=== PATIENT | male | born 1995 | race Caucasian/White ===

== ENCOUNTER 2016-10-25 16:02 | Emergency (ER) | payer OTHER ==
[~2016-10-25] VITALS: Ht 180.3 cm; Wt 122.7 kg
[~2016-10-25 16:02] MED LIST: ARIP20TA8 PO; OMEP40CA5 PO
[2016-10-25 16:13] VITALS: BP 146/81
--- NOTE | 2016-10-25 16:49 | ED.ADGEN ---
Past History Past Medical History: Bipolar, Depression, GERD Past Surgical History: Other Alcohol Use: Occasionally Drug Use: None Adult General Chief Complaint Chief Complaint laceration HPI HPI Patient is a 20 year old male who presents with left long finger laceration. Patient was getting his ready for bowhunting when he cut his finger. He reports his tetanus was updated 6 months ago. No other injuries reported. The bows were clean. Review of Systems Review of Systems Constitutional: Denies fever or chills [] Eyes: Denies change in visual acuity, redness, or eye pain [] HENT: Denies nasal congestion or sore throat [] Respiratory: Denies cough or shortness of breath [] Cardiovascular: No additional information not addressed in HPI [] GI: Denies abdominal pain, nausea, vomiting, bloody stools or diarrhea [] : Denies dysuria or hematuria [] Musculoskeletal: Denies back pain or joint pain [] Integument: Denies rash or skin lesions [] Neurologic: Denies headache, focal weakness or sensory changes [] Allergies Allergies Allergies Coded Allergies Type Severity Reaction Last Updated Verified No Known Drug Allergies 06/07/16 No Physical Exam Physical Exam Constitutional: Well developed, well nourished, no acute distress, non-toxic appearance. [] HENT: Normocephalic, atraumatic Eyes: conjunctiva normal, no discharge. [] Neck: Normal range of motion Cardiovascular:Heart rate regular Lungs & Thorax: No respiratory distress Extremities: Left lateral aspect of the long finger has a flap laceration near the DIP with good hemostasis, well approximated edges, cap refill less than 3 seconds, full range of motion of the finger with normal strength Neurologic: Alert and oriented X 3, normal motor function, normal sensory function, no focal deficits noted. [] Psychologic: Affect normal, judgement normal, mood normal. [] Current Patient Data Vital Signs Vital Signs Date Time Temp Pulse Resp B/P Pulse Ox O2 Delivery O2 Flow Rate FiO2 10/25/16 16:13 97.8 108 20 96 Room Air EKG EKG [] Radiology/Procedures Radiology/Procedures patient's finger was irrigated, closed with glue, Steri-Strip placed over the laceration covered with a bandage. [] Course & Med Decision Making Course & Med Decision Making Pertinent Labs and Imaging studies reviewed. (See chart for details) [] Final Impression Final Impression left finger laceration[] Problems: Magda Disclaimer Dragon Disclaimer This electronic medical record was generated, in whole or in part, using a voice recognition dictation system. ABIODUN CARD MD Oct 25, 2016 16:49
== END 2016-10-25 16:41 | disposition home or self-care (01) ==
LOC: ER 16:02
DX: S61.213A Laceration without foreign body of left middle finger without damage to nail, initial encounter (principal); K21.9 Gastro-esophageal reflux disease without esophagitis; W45.8XXA Other foreign body or object entering through skin, initial encounter; Y93.89 Activity, other specified; Y99.8 Other external cause status; Y92.89 Other specified places as the place of occurrence of the external cause
CPT/HCPCS: 12001; 99283-25

== ENCOUNTER 2017-04-11 05:51 | Emergency (ER) | payer OTHER ==
[~2017-04-11] VITALS: Ht 180.3 cm; Wt 122.7 kg
[2017-04-11 05:51] VITALS: BP 122/70
[~2017-04-11 05:51] MED LIST changes: +ARIP20TA5 PO; -ARIP20TA8 PO
[2017-04-11] MEDS ORDERED: LIDO:MAALOX 1:1 20 ML SINGLE DOSE PO ONE (06:15)
[2017-04-11] MEDS ORDERED: FAMOTIDINE 20 MG/2 ML VIAL IVP ONE (06:15)
[2017-04-11] MEDS ORDERED: ONDANSETRON PF 4 MG/2 ML VIAL. IV ONE (06:15)
[2017-04-11] MEDS ORDERED: ONDA4TAB10 PO (06:16)
--- NOTE | 2017-04-11 06:21 | PHYS DOC ---
General Chief Complaint: ABDOMINAL PAIN Stated Complaint: ABDOMINAL PAIN X 2 DAYS Time Seen by MD: 06:09 Source: patient, old records Exam Limitations: no limitations Problems: History of Present Illness Initial Comments "I think it's my reflux again... doc said if my new medication doesn't work ( nexium) he wants a egd." Patient is a 21-year-old male complaining of GERD pain. He says his symptoms typically manifest itself morning. Says he woke GI discomfort once he got up and moving around one episode of emesis. This has caused him to be late for work and he wants a note. He denies travel or bad food exposure no fever chills sweats or myalgias no blood noted in his emesis no diarrhea. His symptoms have resolved for the most part since he vomited once at home . He denies other complaints Timing/Duration: 1 hour Severity: mild Modifying Factors: improves with other Associated Symptoms: nausea/vomiting Allergies: Coded Allergies: No Known Drug Allergies (Unverified , 06/07/16) Past Medical History Medical History: GERD, other (self mutilation, suicidal ideation or depression , GERD) Surgical History: noncontributory Social History Smoker: non-smoker Alcohol: none Drugs: none Review of Systems Constitutional: denies chills, denies diaphoresis, denies fever, denies malaise Respiratory: denies cough, denies shortness of breath Cardiovascular: denies chest pain, denies palpitations Gastrointestinal: abdominal pain, nausea, vomiting Musculoskeletal: denies back pain, denies joint swelling, denies neck pain Psychiatric/Neurological: denies headache, denies numbness, denies paresthesia Physical Exam General Appearance: no apparent distress, obese Ear, Nose, Throat: hearing grossly normal, normal ENT inspection, normal pharynx Neck: non-tender, supple Respiratory: normal breath sounds, no respiratory distress Cardiovascular: normal peripheral pulses, regular rate, rhythm Gastrointestinal: normal bowel sounds, non tender, soft Back: no CVA tenderness, no vertebral tenderness Extremities: non-tender, normal inspection 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 Aggressive hydration with gatorade or water. Continue current medications. Rx: zofran odt Follow up with your doctor this week for recheck. Work excuse today. Return to ED with new or changing symptoms. BRIANA ANTONY DO Apr 11, 2017 06:21
== END 2017-04-11 07:00 | disposition home or self-care (01) ==
LOC: ER 05:51
DX: K21.9 Gastro-esophageal reflux disease without esophagitis (principal)
CPT/HCPCS: 96374; 96375; 99284; J2405; S0028

== ENCOUNTER 2017-04-18 09:21 | Emergency (ER) | payer OTHER ==
[~2017-04-18] VITALS: Ht 180.3 cm; Wt 133.4 kg
[~2017-04-18 09:21] MED LIST changes: +ONDA4TAB10 PO
[2017-04-18] MEDS ORDERED: IV NORMAL SALINE 1,000ML 1,000 ML IV SCH (09:32)
--- NOTE | 2017-04-18 09:39 | PHYS DOC ---
Past History Past Medical History: Bipolar, Depression, GERD Past Surgical History: Other Smoking: Non-smoker Alcohol Use: None Drug Use: None Adult General Chief Complaint Chief Complaint: ABDOMINAL PAIN HPI HPI This is a pleasant 21-year-old male with history of bipolar disorder chronic intermittent reflux who presents with abdominal pain that began at 4 AM this morning. Patient has had a very restricted diet since being diagnosed reflux on present medications who woke this morning at 4 AM with a burning sensation in his epigastric region with radiation to the Center esophagus described as a burning sensation. The pain does wax and wane it does not radiate to the back, but does have some pains to the right lower abdomen. He denies any nausea at this time but has been nauseous with symptoms in the past. Denies any diarrhea, UTI symptoms, hematuria, constipation, night sweats fevers or weight loss. Patient denies any direct trauma. Patient's pain is moderate at this time. He drove himself to the ER. Things that make the symptoms worse are food and certain drinks by coffee and soda. These medications were treat his symptoms. He is not a symptom episode like this in quite a while Review of Systems Review of Systems Constitutional: Denies fever or chills [] Eyes: Denies change in visual acuity, redness, or eye pain [] HENT: Denies nasal congestion or sore throat [] Respiratory: Denies cough or shortness of breath [] Cardiovascular: No additional information not addressed in HPI [] GI: She does complain of abdominal pain with nausea no vomiting diarrhea or loose stools. : Denies dysuria or hematuria [] Musculoskeletal: Denies back pain or joint pain [] Integument: Denies rash or skin lesions [] Neurologic: Denies headache, focal weakness or sensory changes [] Endocrine: Denies polyuria or polydipsia [] Allergies Allergies Allergies Coded Allergies Type Severity Reaction Last Updated Verified No Known Drug Allergies 06/07/16 No Physical Exam Physical Exam Vital signs reviewed on the patient's chart Constitutional: Well developed, well nourished, no acute distress, non-toxic appearance. Patient is mildly obese HENT: Normocephalic, atraumatic, bilateral external ears normal, oropharynx moist, no oral exudates, nose normal. [] Cardiovascular:Heart rate regular rhythm, no murmur [] Lungs & Thorax: Bilateral breath sounds clear to auscultation [] Abdomen: Bowel sounds normal, soft, she does have some tenderness in the epigastric region as well as the right lower quadrant. There are no masses guarding or rebound or medical megaly patient is no Berkowitz's or McBurney's point tenderness to palpation. Is no Hernandez Tong sign. Skin: Warm, dry, no erythema, no rash. [] Back: No tenderness, Neurologic: Alert and oriented X 3, normal motor function, normal sensory function, no focal deficits noted. [] Psychologic: Affect normal, judgement normal, mood normal. [] Current Patient Data Lab Results Laboratory Tests Test 04/18/17 09:39 White Blood Count 7.5 x10^3/uL (4.0-11.0) Red Blood Count 4.91 x10^6/uL (4.30-5.70) Hemoglobin 15.5 g/dL (13.0-17.5) Hematocrit 44.1 % (39.0-53.0) Mean Corpuscular Volume 90 fL (79-100) Mean Corpuscular Hemoglobin 32 pg (25-35) Mean Corpuscular Hemoglobin Concent 35 g/dL (31-37) Red Cell Distribution Width 12.9 % (11.5-14.5) Platelet Count 281 x10^3/uL (140-400) Neutrophils (%) (Auto) 65 % (31-73) Lymphocytes (%) (Auto) 22 % (24-48) L Monocytes (%) (Auto) 9 % (0-9) Eosinophils (%) (Auto) 3 % (0-3) Basophils (%) (Auto) 1 % (0-3) Neutrophils # (Auto) 4.9 x10^3uL (1.8-7.7) Lymphocytes # (Auto) 1.6 x10^3/uL (1.0-4.8) Monocytes # (Auto) 0.7 x10^3/uL (0.0-1.1) Eosinophils # (Auto) 0.2 x10^3/uL (0.0-0.7) Basophils # (Auto) 0.1 x10^3/uL (0.0-0.2) Sodium Level 140 mmol/L (136-145) Potassium Level 4.3 mmol/L (3.5-5.1) Chloride Level 105 mmol/L (98-107) Carbon Dioxide Level 28 mmol/L (21-32) Anion Gap 7 (6-14) Blood Urea Nitrogen 16 mg/dL (8-26) Creatinine 1.0 mg/dL (0.7-1.3) Estimated GFR (Cockcroft-Gault) 93.4 BUN/Creatinine Ratio 16 (6-20) Glucose Level 86 mg/dL (70-99) Calcium Level 9.1 mg/dL (8.5-10.1) Total Bilirubin 0.2 mg/dL (0.2-1.0) Aspartate Amino Transferase (AST) 30 U/L (15-37) Alanine Aminotransferase (ALT) 67 U/L (16-63) H Alkaline Phosphatase 64 U/L (46-116) Total Protein 7.5 g/dL (6.4-8.2) Albumin 3.9 g/dL (3.4-5.0) Albumin/Globulin Ratio 1.1 (1.0-1.7) Lipase 150 U/L (73-393) EKG EKG [] Radiology/Procedures Radiology/Procedures [] [address] [place] [id number] IMAGING REPORT Signed PATIENT: LORA MARTE ACCOUNT: [id number] : 1995 LOCATION: ER AGE: 21 SEX: M EXAM STATUS: REG ER ORD. PHYSICIAN: JAGDISH BROOKS MD REASON: epigastric pain PROCEDURE: CT ABD PELV W/ IV CONTRST ONLY Examination: CT of the abdomen pelvis with IV contrast History: History of epigastric abdominal pain Comparison: None available Technique: Axial CT images of the abdomen pelvis were performed with IV contrast. Coronal and sagittal reformats are performed PQRS Compliance Statement: One or more of the following individualized dose reduction techniques were utilized for this examination: 1. Automated exposure control 2. Adjustment of the mA and/or kV according to patient size 3. Use of iterative reconstruction technique Findings: Minimal bibasal lung atelectasis. No evidence of free air identified in the abdomen. The visualized liver, spleen, adrenals grossly appears unremarkable. The gallbladder is mildly distended. The stomach is mildly distended. The visualized pancreas grossly appears unremarkable. The small bowel is nondilated. The appendix is normal. Feces and gas noted in the colon. The urinary bladder is mildly distended. The caliber of the aorta grossly appears unremarkable. The bilateral kidneys enhance symmetrically. No evidence of lytic bony destructive lesion identified. Impression: 1. No acute intra-abdominal findings. DICTATED AND SIGNED BY: JASPER MATTHEW MD DATE: 04/18/17 1019 CC: JAGDISH BROOKS MD; FÉLIX KNIGHT DO ~ Course & Med Decision Making Course & Med Decision Making Pertinent Labs and Imaging studies reviewed. (See chart for details) []Acute pancreatitis. Appendicitis. Acute hepatitis. Peptic ulcer disease. Nonulcer dyspepsia. Irritable bowel disease. Functional gallbladder disorder. Sphincter of Oddi dysfunction. Diseases of the right kidney. Right-sided pneumonia. Oifh-Ebna-Jsjlaz syndrome Subhepatic or intraabdominal abscess. Perforated viscus. Cardiac ischemia. Black spider envenomation Differential diagnosis considered upon arrival. At this point patient fluids antiemetics GI cocktail as well as appropriate abdominal labs. And given his right lower quadrant would do a CT abdomen and pelvis to make sure is not developing appendicitis. Time is now at 10:21 AM Patient tells me that their symptoms given during CC are improved. We reviewed labs at the bedside with the patient feeling no obvious signs of hepatitis, pancreatitis, or elevated white blood cell count. Still awaiting results of the CAT scan at this time. It is my intent is to help provide this patient with instructions to follow-up with his physician to get referred to a GI physician for an EGD, H. pylori screening and possible colonoscopy. He would benefit from weight reduction as well which may help reduce his the frequency of symptoms. CT scan has been read by radiology and reviewed by me at 10:45 AM demonstrate no signs of appendicitis or bowel obstruction or intra-abdominal catastrophe requiring surgery. At this point results are shared with the patient. And we discussed discharge instructions. Dragon Disclaimer Dragon Disclaimer This chart was dictated in whole or in part using Voice Recognition software in a busy, high-work load, and often noisy Emergency Department environment. It may contain unintended and wholly unrecognized errors or omissions. Departure Departure: Impression: Primary Impression: Abdominal pain Additional Impression: Acid reflux disease Disposition: HOME, SELF-CARE Condition: IMPROVED Referrals: FÉLIX KNIGHT DO (PCP) Patient Instructions: Abdominal Pain (Nonspecific), Diet for Gastroesophageal Reflux Disease, Adult, Gastroesophageal Reflux Disease, Adult Additional Instructions: My discharge plan Follow up: In addition patient is asked to followup with their primary doctor, within a week for followup examination and to address patient's ongoing medical conditions. Patient is advised that in the Emergency Department primary complaints are addressed and only in light of known signs and symptoms. Patient should return immediately to the emergency department if new signs and symptoms develop or patient's condition worsens in any way. At time of discharge patient was in stable condition and had verbalized understanding of the discharge instructions. It is my recommendation that you follow-up with a primary care physician so they can refer you to a GI physician to help continue to workup the cause of a reflux. Poorly controlled or uncontrolled reflux can protect her risk for other disease processes and continued discomfort. I would advise that you get scheduled for an H. pylori evaluation, EGD and possible colonoscopy. Scripts Pantoprazole Sodium (PROTONIX) 40 Mg Tablet.dr 1 TAB PO DAILY, #30 TAB 5 Refills Prov: JAGDISH BROOKS MD 04/18/17 Sucralfate (CARAFATE) 1 Gm Tablet 1 TAB PO QID, #30 TAB 1 Refill Prov: JAGDISH BROOKS MD 04/18/17 Problem Qualifiers JAGDISH BROOKS MD Apr 18, 2017 09:39
[2017-04-18] MEDS ORDERED: 0.9 % SODIUM CHLORIDE 10 ML DISP.SYRIN. IV PRN (09:45)
[2017-04-18 09:54] LABS: BASO # 0.1 x10^3/uL (0.0-0.2); BASO % 1 % (0-3); EOS # 0.2 x10^3/uL (0.0-0.7); EOS % 3 % (0-3); HEMATOCRIT 44.1 % (39.0-53.0); HEMOGLOBIN 15.5 g/dL (13.0-17.5); LYMPH # 1.6 x10^3/uL (1.0-4.8); LYMPH % 22 % (24-48); MEAN CORPUSCULAR HEMOGLOBIN 32 pg (25-35); MEAN CORPUSCULAR HGB CONC 35 g/dL (31-37); MEAN CORPUSCULAR VOLUME 90 fL (79-100); MONO # 0.7 x10^3/uL (0.0-1.1); MONO % 9 % (0-9); NEUT # 4.9 x10^3uL (1.8-7.7); NEUT % 65 % (31-73); PLATELET COUNT 281 x10^3/uL (140-400); RED BLOOD COUNT 4.91 x10^6/uL (4.30-5.70); RED CELL DISTRIBUTION WIDTH 12.9 % (11.5-14.5); WHITE BLOOD COUNT 7.5 x10^3/uL (4.0-11.0)
[2017-04-18 10:04] LABS: ALBUMIN 3.9 g/dL (3.4-5.0); ALBUMIN/GLOBULIN RATIO 1.1 (1.0-1.7); CALCIUM 9.1 mg/dL (8.5-10.1); GFR 93.4; POTASSIUM 4.3 mmol/L (3.5-5.1); TOTAL BILIRUBIN 0.2 mg/dL (0.2-1.0); TOTAL PROTEIN 7.5 g/dL (6.4-8.2)
[2017-04-18] MEDS ORDERED: ONDANSETRON PF 4 MG/2 ML VIAL. IV ONE (10:15)
[2017-04-18] MEDS ORDERED: FAMOTIDINE 20 MG/2 ML VIAL IVP ONE (10:15)
[2017-04-18] MEDS ORDERED: LIDO:MAALOX 1:1 20 ML SINGLE DOSE PO ONE (10:15)
[2017-04-18] MEDS ORDERED: IOHEXOL 300 MG/ML 75 ML VIAL. IV ONE (10:15)
--- NOTE | 2017-04-18 10:22 | EKG ---
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
--- NOTE | 2017-04-18 10:25 | RAD ---
Examination: CT of the abdomen pelvis with IV contrast History: History of epigastric abdominal pain Comparison: None available Technique: Axial CT images of the abdomen pelvis were performed with IV contrast. Coronal and sagittal reformats are performed PQRS Compliance Statement: One or more of the following individualized dose reduction techniques were utilized for this examination: 1. Automated exposure control 2. Adjustment of the mA and/or kV according to patient size 3. Use of iterative reconstruction technique Findings: Minimal bibasal lung atelectasis. No evidence of free air identified in the abdomen. The visualized liver, spleen, adrenals grossly appears unremarkable. The gallbladder is mildly distended. The stomach is mildly distended. The visualized pancreas grossly appears unremarkable. The small bowel is nondilated. The appendix is normal. Feces and gas noted in the colon. The urinary bladder is mildly distended. The caliber of the aorta grossly appears unremarkable. The bilateral kidneys enhance symmetrically. No evidence of lytic bony destructive lesion identified. Impression: 1. No acute intra-abdominal findings.
[2017-04-18 10:27] LABS: BILIRUBIN,URINE NEG (NEG); CLARITY,URINE CLEAR; COLOR,URINE YELLOW; GLUCOSE,URINE NEG (NEG)
[2017-04-18] MEDS ORDERED: PANT40TA3 PO (10:27)
[2017-04-18] MEDS ORDERED: SUCR1TAB35 PO (10:27)
[2017-04-18 10:28] LABS: BACTERIA,URINE 0 /HPF (0-FEW); NITRITE,URINE NEG (NEG); RBC,URINE 0 /HPF (0-2); SQUAMOUS EPITHELIAL CELL,UR OCC /LPF; UROBILINOGEN,URINE 0.2 mg/dL (0.2 mg/dL); WBC,URINE RARE /HPF (0-4)
[2017-04-18 10:56] VITALS: BP 132/76
== END 2017-04-18 10:55 | disposition home or self-care (01) ==
LOC: ER 09:21
DX: K21.9 Gastro-esophageal reflux disease without esophagitis (principal); R10.13 Epigastric pain
CPT/HCPCS: 36415; 74177; 80053; 81001; 83690; 85025; 93005; 96361; 96374; 96375; 99285; J2405; Q9967; S0028; J7030

== ENCOUNTER 2017-04-19 07:31 | Emergency (ER) | payer OTHER ==
[~2017-04-19] VITALS: Ht 180.3 cm; Wt 131.5 kg
[~2017-04-19 07:31] MED LIST changes: +PANT40TA3 PO; +SUCR1TAB35 PO
[2017-04-19] MEDS ORDERED: IV NORMAL SALINE 1,000ML 1,000 ML IV SCH (08:15)
[2017-04-19 08:18] LABS: BASO # 0.1 x10^3/uL (0.0-0.2); BASO % 1 % (0-3); EOS # 0.2 x10^3/uL (0.0-0.7); EOS % 2 % (0-3); HEMOGLOBIN 15.7 g/dL (13.0-17.5); LYMPH # 1.7 x10^3/uL (1.0-4.8); LYMPH % 24 % (24-48); MEAN CORPUSCULAR HEMOGLOBIN 32 pg (25-35); MEAN CORPUSCULAR HGB CONC 36 g/dL (31-37); MEAN CORPUSCULAR VOLUME 90 fL (79-100); MONO # 0.7 x10^3/uL (0.0-1.1); MONO % 9 % (0-9); NEUT # 4.6 x10^3uL (1.8-7.7); NEUT % 64 % (31-73); PLATELET COUNT 288 x10^3/uL (140-400); RED BLOOD COUNT 4.91 x10^6/uL (4.30-5.70); RED CELL DISTRIBUTION WIDTH 12.9 % (11.5-14.5); WHITE BLOOD COUNT 7.2 x10^3/uL (4.0-11.0)
[2017-04-19] MEDS ORDERED: ONDANSETRON PF 4 MG/2 ML VIAL. IV ONE (08:30)
[2017-04-19] MEDS ORDERED: FAMOTIDINE 20 MG/2 ML VIAL IVP ONE (08:30)
[2017-04-19] MEDS ORDERED: LIDO:MAALOX 1:1 20 ML SINGLE DOSE PO ONE (08:30)
[2017-04-19 08:33] LABS: ALBUMIN 3.9 g/dL (3.4-5.0); ALBUMIN/GLOBULIN RATIO 1.1 (1.0-1.7); CALCIUM 9.2 mg/dL (8.5-10.1); CREATININE 0.9 mg/dL (0.7-1.3); GFR 105.5; POTASSIUM 4.3 mmol/L (3.5-5.1); TOTAL BILIRUBIN 0.2 mg/dL (0.2-1.0); TOTAL PROTEIN 7.5 g/dL (6.4-8.2)
[2017-04-19 08:39] VITALS: BP 130/75
--- NOTE | 2017-04-19 08:40 | PHYS DOC ---
Past History Past Medical History: Bipolar, Depression, GERD Past Surgical History: Other Smoking: Non-smoker Alcohol Use: None Drug Use: None Adult General Chief Complaint Chief Complaint: ABDOMINAL PAIN HPI HPI Patient is a 21 year old male who presents with complaint of upper abdominal pain. The patient was seen in the emergency department yesterday for the same symptoms. Patient states that his blood work and CT imaging did not show any acute findings and patient was treated for gastritis. Patient states that his symptoms initially had improved when he was seen yesterday, however at about midnight last night he states his symptoms started worsening again. Patient states that the pain is located in his upper abdomen. Patient denies radiation of pain. Patient states he's had associated nausea and had an episode of vomiting earlier this morning. Patient denies any associated fever. Patient does have history of esophageal reflux disease. Patient states he takes a medication for his stomach but is unable to recall the name of it at this time. Patient rates his pain currently is 8 out of 10 and states that it is dull. Due to his symptoms, the patient states that he has not been eating or drinking normal amounts at home. Review of Systems Review of Systems Constitutional: Generalized fatigue, denies fever or chills[] Eyes: Denies change in visual acuity, redness, or eye pain [] HENT: Denies nasal congestion or sore throat [] Respiratory: Denies cough or shortness of breath [] Cardiovascular: Denies chest pain or edema[] GI: Abdominal pain, nausea, vomiting, denies bloody stools or diarrhea[] : Denies dysuria or hematuria [] Musculoskeletal: Denies back pain or joint pain [] Integument: Denies rash or skin lesions [] Neurologic: Headache, denies focal weakness or sensory changes [] Current Medications Current Medications Current Medications Medications (Trade) Dose Ordered Sig/Yakelin Start Time Stop Time Status Last Admin Dose Admin Famotidine (Pepcid) 20 mg 1X ONCE 04/19/17 08:30 04/19/17 08:31 DC 04/19/17 08:28 20 MG Multi-Ingredient Mouthwash/Gargle (Gi Cocktail) 20 ml 1X ONCE 04/19/17 08:30 04/19/17 08:31 DC 04/19/17 08:28 20 ML Ondansetron HCl (Zofran) 4 mg 1X ONCE 04/19/17 08:30 04/19/17 08:31 DC 04/19/17 08:28 4 MG Sodium Chloride 1,000 ml @ 1,000 mls/hr Q1H 04/19/17 08:15 04/19/17 09:14 04/19/17 08:15 1,000 MLS/HR Allergies Allergies Allergies Coded Allergies Type Severity Reaction Last Updated Verified No Known Drug Allergies 06/07/16 No Physical Exam Physical Exam Constitutional: Alert, obese, afebrile, appears in mild to moderate discomfort. [] HENT: Normocephalic, atraumatic, bilateral external ears normal, oropharynx moist, no oral exudates, nose normal. [] Eyes: PERRLA, EOMI, conjunctiva normal, no discharge. [] Neck: Normal range of motion, no tenderness, supple, no stridor. [] Cardiovascular:Heart rate regular rhythm, no murmur [] Lungs & Thorax: Bilateral breath sounds clear to auscultation [] Abdomen: Bowel sounds normal, soft, minimal epigastric tenderness to palpation with no guarding or rebound tenderness, no masses, no pulsatile masses. [] Skin: Warm, dry, no erythema, no rash. [] Back: No tenderness, no CVA tenderness. [] Extremities: No tenderness, no cyanosis, no clubbing, ROM intact, no edema. [] Neurologic: Alert and oriented X 3, normal motor function, normal sensory function, no focal deficits noted. [] Current Patient Data Vital Signs Vital Signs Date Time Temp Pulse Resp B/P (MAP) Pulse Ox O2 Delivery O2 Flow Rate FiO2 04/19/17 07:31 98.4 75 20 100 Room Air Lab Results Laboratory Tests Test 04/19/17 08:05 White Blood Count 7.2 x10^3/uL (4.0-11.0) Red Blood Count 4.91 x10^6/uL (4.30-5.70) Hemoglobin 15.7 g/dL (13.0-17.5) Hematocrit 44.0 % (39.0-53.0) Mean Corpuscular Volume 90 fL (79-100) Mean Corpuscular Hemoglobin 32 pg (25-35) Mean Corpuscular Hemoglobin Concent 36 g/dL (31-37) Red Cell Distribution Width 12.9 % (11.5-14.5) Platelet Count 288 x10^3/uL (140-400) Neutrophils (%) (Auto) 64 % (31-73) Lymphocytes (%) (Auto) 24 % (24-48) Monocytes (%) (Auto) 9 % (0-9) Eosinophils (%) (Auto) 2 % (0-3) Basophils (%) (Auto) 1 % (0-3) Neutrophils # (Auto) 4.6 x10^3uL (1.8-7.7) Lymphocytes # (Auto) 1.7 x10^3/uL (1.0-4.8) Monocytes # (Auto) 0.7 x10^3/uL (0.0-1.1) Eosinophils # (Auto) 0.2 x10^3/uL (0.0-0.7) Basophils # (Auto) 0.1 x10^3/uL (0.0-0.2) Sodium Level 140 mmol/L (136-145) Potassium Level 4.3 mmol/L (3.5-5.1) Chloride Level 104 mmol/L (98-107) Carbon Dioxide Level 28 mmol/L (21-32) Anion Gap 8 (6-14) Blood Urea Nitrogen 13 mg/dL (8-26) Creatinine 0.9 mg/dL (0.7-1.3) Estimated GFR (Cockcroft-Gault) 105.5 BUN/Creatinine Ratio 14 (6-20) Glucose Level 106 mg/dL (70-99) H Calcium Level 9.2 mg/dL (8.5-10.1) Total Bilirubin 0.2 mg/dL (0.2-1.0) Aspartate Amino Transferase (AST) 32 U/L (15-37) Alanine Aminotransferase (ALT) 73 U/L (16-63) H Alkaline Phosphatase 61 U/L (46-116) Total Protein 7.5 g/dL (6.4-8.2) Albumin 3.9 g/dL (3.4-5.0) Albumin/Globulin Ratio 1.1 (1.0-1.7) Lipase 140 U/L (73-393) EKG EKG Not performed[] Radiology/Procedures Radiology/Procedures None performed[] Course & Med Decision Making Course & Med Decision Making Pertinent Labs and Imaging studies reviewed. (See chart for details) The patient was given IV fluids, Zofran, and GI cocktail. On reevaluation, patient states his symptoms have improved and current pain level is 3 out of 10. The patient's lab work shows no remarkable changes from his previous workup yesterday. Radiographic imaging is not indicated at this time. The patient would benefit from referral to a GI specialist. Recommended the patient that this be done through his primary physician. The patient is to continue on Protonix and sucralfate as was prescribed yesterday at patient's previous emergency department visit. Advise follow-up with primary doctor in the next 2- 3 days for reevaluation and return to emergency department for any worsening symptoms. Patient voiced understanding and in agreement with treatment plan. Dragon Disclaimer Dragon Disclaimer This chart was dictated in whole or in part using Voice Recognition software in a busy, high-work load, and often noisy Emergency Department environment. It may contain unintended and wholly unrecognized errors or omissions. Departure Departure: Impression: Primary Impression: Epigastric abdominal pain Additional Impression: Nausea and vomiting Disposition: 01 HOME, SELF-CARE Condition: IMPROVED Referrals: FÉLIX KNIGHT DO (PCP) Patient Instructions: Abdominal Pain (Nonspecific), Nausea and Vomiting Additional Instructions: Follow-up with your primary doctor in 2-3 days for reevaluation. You will need follow-up in the next 1-2 weeks with a paper wrapping machine operator for further workup of your abdominal pain. Return to the emergency department for any worsening symptoms. Problem Qualifiers Additional Impression: Nausea and vomiting Vomiting type: unspecified Vomiting Intractability: non-intractable Qualified Codes: R11.2 - Nausea with vomiting, unspecified STEFANIE STARK MD Apr 19, 2017 08:40
[2017-04-19 09:17] LABS: BILIRUBIN,URINE NEG (NEG); CLARITY,URINE CLEAR; COLOR,URINE YELLOW; GLUCOSE,URINE NEG (NEG); NITRITE,URINE NEG (NEG); UROBILINOGEN,URINE 0.2 mg/dL (0.2 mg/dL)
[2017-04-19 09:18] LABS: BACTERIA,URINE 0 /HPF (0-FEW); SQUAMOUS EPITHELIAL CELL,UR FEW /LPF; WBC,URINE OCC /HPF (0-4)
== END 2017-04-19 09:40 | disposition home or self-care (01) ==
LOC: ER 07:31
DX: R10.13 Epigastric pain (principal); R11.2 Nausea with vomiting, unspecified; K21.9 Gastro-esophageal reflux disease without esophagitis
CPT/HCPCS: 36415; 80053; 81001; 83690; 85025; 96361; 96374; 96375; 99284; J2405; S0028; J7030

== ENCOUNTER → 2017-11-20 | Outpatient (CLI) | payer OTHER ==
--- NOTE | 2017-11-20 12:23 | RAD ---
Exam : Carotid Duplex with Grayscale Ultrasound and Spectral and Color Doppler Analysis: 11/20/2017 Clinical Indications: Chest pain Comparison study: None available. PQRS Compliance Statement - Stenosis calculations for CT, MR and conventional angiography are based upon measurement of the distal ICA diameter in accordance with the NASCET methodology. Stenosis calculations for carotid ultrasound studies are derived from validated velocity criteria which are known to correlate with the NASCET methodology. Findings: The common, internal and external carotid arteries were examined by grayscale, color and spectral Doppler ultrasound. There is no evidence of atherosclerotic disease or significant stenosis in the visualized vessels. Flow in the vertebral arteries was antegrade. The following are the velocities and ratios in the carotid arteries on both sides: RIGHT ICA PV: 72cm/sec RIGHT CCA PV: 108cm/sec RIGHT ICA ED: 28cm/sec RIGHT IC/CCPV: Less than 2 RIGHT VERTEBRAL: antegrade flow LEFT ICA PV: 69cm/sec LEFT CCA PV: 83cm/sec LEFT ICA ED: 23cm/sec LEFT IC/CCPV: Less than 2 LEFT VERTEBRAL: antegrade flow ] <50% ICA Stenosis: PSV < 125cm/s (EDV < 40cm/s; SVR < 2.0) 50-69% ICA Stenosis: PSV < 125-229cm/s (EDV 40-99cm/s; SVR 2.0-3.9) >70% ICA Stenosis: PSV > 230cm/s (EDV >100cm/s; SVR >4.0) Impression: Normal bilateral carotid and vertebral artery spectral and color Doppler analysis exam.
== END | disposition home or self-care (01) ==
LOC: US 07:33
PROVIDERS: ATTEND Family Medicine
DX: R07.2 Precordial pain (principal); K21.9 Gastro-esophageal reflux disease without esophagitis; Z87.891 Personal history of nicotine dependence
CPT/HCPCS: 93880

== ENCOUNTER 2018-02-05 08:26 | Emergency (ER) | payer OTHER ==
[~2018-02-05] VITALS: Ht 180.3 cm; Wt 124.7 kg
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
[2018-02-05] MEDS ORDERED: KETOROLAC 30 MG/ML VIAL. IV ONE (09:15)
[2018-02-05 09:16] LABS: BASO # 0.1 x10^3/uL (0.0-0.2); BASO % 1 % (0-3); EOS # 0.2 x10^3/uL (0.0-0.7); EOS % 3 % (0-3); HEMATOCRIT 43.3 % (39.0-53.0); LYMPH # 2.2 x10^3/uL (1.0-4.8); LYMPH % 30 % (24-48); MEAN CORPUSCULAR HEMOGLOBIN 32 pg (25-35); MEAN CORPUSCULAR HGB CONC 35 g/dL (31-37); MEAN CORPUSCULAR VOLUME 91 fL (79-100); MONO # 0.7 x10^3/uL (0.0-1.1); MONO % 10 % (0-9); NEUT # 4.2 x10^3uL (1.8-7.7); NEUT % 57 % (31-73); PLATELET COUNT 274 x10^3/uL (140-400); RED BLOOD COUNT 4.76 x10^6/uL (4.30-5.70); RED CELL DISTRIBUTION WIDTH 12.9 % (11.5-14.5); WHITE BLOOD COUNT 7.5 x10^3/uL (4.0-11.0)
--- NOTE | 2018-02-05 09:16 | EKG ---
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
[2018-02-05 09:22] LABS: ALBUMIN 3.8 g/dL (3.4-5.0); ALBUMIN/GLOBULIN RATIO 1.1 (1.0-1.7); CALCIUM 8.9 mg/dL (8.5-10.1); CREATININE 0.9 mg/dL (0.7-1.3); GFR 104.6; POTASSIUM 4.7 mmol/L (3.5-5.1); TOTAL BILIRUBIN 0.5 mg/dL (0.2-1.0); TOTAL PROTEIN 7.4 g/dL (6.4-8.2)
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
[2018-02-05] MEDS ORDERED: IOHEXOL 300 MG/ML 75 ML VIAL. IV ONE (10:00)
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
[2018-02-05] MEDS ORDERED: HYDR-971 PO (10:11)
[2018-02-05 10:21] VITALS: BP 121/69
== END 2018-02-05 10:15 | disposition home or self-care (01) ==
LOC: ER 08:26
DX: S20.212A Contusion of left front wall of thorax, initial encounter (principal); F31.9 Bipolar disorder, unspecified; K21.9 Gastro-esophageal reflux disease without esophagitis; W31.89XA Contact with other specified machinery, initial encounter; Y93.89 Activity, other specified; Y99.8 Other external cause status; Y92.89 Other specified places as the place of occurrence of the external cause
CPT/HCPCS: 36415; 71046; 71100; 71260; 80053; 85025; 93005; 96374; 99285; J1885; Q9967

== ENCOUNTER 2018-02-26 11:49 | Emergency (ER) | payer OTHER ==
[~2018-02-26] VITALS: Ht 180.3 cm; Wt 128.8 kg
[~2018-02-26 11:49] MED LIST changes: +HYDR-971 PO
[2018-02-26 13:13] VITALS: BP 123/70
--- NOTE | 2018-02-26 13:53 | PHYS DOC ---
Past History Past Medical History: Bipolar, Depression, GERD Past Surgical History: Other Smoking: Non-smoker Alcohol Use: None Drug Use: None Adult General Chief Complaint Chief Complaint: NEEDLE STICK HPI HPI Patient is a 22-year-old male who presents with report of needle stick to his right wrist. Patient was doing a clean out of an apartment and did not see the needle which pierced the skin of his wrist. Apartment has been vacated for some period of time. Needle does appear to be an insulin needle. Review of Systems Review of Systems Constitutional: Denies fever or chills [] Respiratory: Denies cough or shortness of breath [] Cardiovascular: Denies chest pain[] GI: Denies abdominal pain, nausea, vomiting [] All other systems were reviewed and found to be within normal limits, except as documented in this note. Allergies Allergies Allergies Coded Allergies Type Severity Reaction Last Updated Verified No Known Drug Allergies 06/07/16 No Physical Exam Physical Exam Constitutional: Well developed, well nourished, no acute distress, non-toxic appearance. [] Neck: Normal range of motion, no tenderness, supple, no stridor. [] Cardiovascular:Heart rate regular rhythm, no murmur [] Lungs & Thorax: Bilateral breath sounds clear to auscultation [] Skin: Warm, dry, no erythema, no rash. [] Current Patient Data Vital Signs Vital Signs Date Time Temp Pulse Resp B/P (MAP) Pulse Ox O2 Delivery O2 Flow Rate FiO2 02/26/18 13:13 69 18 123/70 (87) 99 Room Air 02/26/18 12:01 98.0 EKG EKG [] Radiology/Procedures Radiology/Procedures [] Course & Med Decision Making Course & Med Decision Making Pertinent Labs and Imaging studies reviewed. (See chart for details) Discussed postexposure prophylaxis with patient and family and patient elects to not be placed on PEP. Dragon Disclaimer Dragon Disclaimer This electronic medical record was generated, in whole or in part, using a voice recognition dictation system. Departure Departure: Impression: Primary Impression: Needle stick, hypodermic, accidental Disposition: HOME, SELF-CARE Condition: STABLE Referrals: FÉLIX KNIGHT DO (PCP) Patient Instructions: Needle Stick Injury Additional Instructions: Follow-up as outpatient for additional testing as per postexposure/needle stick recommendations Problem Qualifiers Primary Impression: Needle stick, hypodermic, accidental Encounter type: initial encounter Qualified Codes: W46.0XXA - Contact with hypodermic needle, initial encounter MARK CRESPO Jr. DO Feb 26, 2018 13:53
== END 2018-02-26 14:13 | disposition home or self-care (01) ==
LOC: ER 11:49
DX: S69.91XA Unspecified injury of right wrist, hand and finger(s), initial encounter (principal); F31.9 Bipolar disorder, unspecified; K21.9 Gastro-esophageal reflux disease without esophagitis; W46.0XXA Contact with hypodermic needle, initial encounter; Y93.E9 Activity, other interior property and clothing maintenance; Y92.039 Unspecified place in apartment as the place of occurrence of the external cause; Y99.8 Other external cause status
CPT/HCPCS: 86703; 86803; 87340; 99284

== ENCOUNTER 2018-04-01 22:45 | Emergency (ER) | payer OTHER ==
[~2018-04-01] VITALS: Ht 180.3 cm; Wt 128.0 kg
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
[2018-04-01 23:37] LABS: BASO # 0.1 x10^3/uL (0.0-0.2); BASO % 1 % (0-3); EOS # 0.2 x10^3/uL (0.0-0.7); EOS % 2 % (0-3); LYMPH # 2.8 x10^3/uL (1.0-4.8); LYMPH % 26 % (24-48); MEAN CORPUSCULAR HEMOGLOBIN 32 pg (25-35); MEAN CORPUSCULAR HGB CONC 35 g/dL (31-37); MEAN CORPUSCULAR VOLUME 92 fL (79-100); MONO # 0.9 x10^3/uL (0.0-1.1); MONO % 8 % (0-9); NEUT # 6.9 x10^3uL (1.8-7.7); NEUT % 64 % (31-73); PLATELET COUNT 305 x10^3/uL (140-400); RED BLOOD COUNT 5.02 x10^6/uL (4.30-5.70); RED CELL DISTRIBUTION WIDTH 12.5 % (11.5-14.5); WHITE BLOOD COUNT 10.9 x10^3/uL (4.0-11.0)
[2018-04-01 23:44] LABS: CALCIUM 9.4 mg/dL (8.5-10.1); GFR 92.6; POTASSIUM 4.3 mmol/L (3.5-5.1)
--- NOTE | 2018-04-01 23:59 | RAD ---
PROCEDURE: CHEST PA LATERAL CLINICAL INDICATION: CHEST PAIN - MOSTLY ON LEFT SIDE COMPARISON: 02/05/2018 FINDINGS: No pneumothorax identified. Cardiac and mediastinal contours unremarkable. No pulmonary consolidation or acute airspace disease. No acute osseous abnormalities identified. IMPRESSION: No pulmonary consolidation or acute airspace disease. Electronically signed by: Juve Hadley DO (04/01/2018 11:55 PM) [facility]
[2018-04-02] MEDS ORDERED: KETOROLAC 30 MG/ML VIAL. IM ONE (00:15)
[2018-04-02 01:06] VITALS: BP 121/64
--- NOTE | 2018-04-02 15:23 | EKG ---
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
== END 2018-04-02 01:21 | disposition home or self-care (01) ==
LOC: ER 22:45
DX: R07.89 Other chest pain (principal); G43.909 Migraine, unspecified, not intractable, without status migrainosus; K21.9 Gastro-esophageal reflux disease without esophagitis; F31.9 Bipolar disorder, unspecified
CPT/HCPCS: 36415; 71046; 80048; 84484; 85025; 93005; 96372; 99285; J1885

== ENCOUNTER 2018-04-28 00:50 | Emergency (ER) | payer OTHER ==
[~2018-04-28] VITALS: Ht 180.3 cm; Wt 128.8 kg
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
[2018-04-28 02:23] LABS: AMPHETAMINE/METHAMPHETAMINE NEG (NEG); BARBITURATES NEG (NEG); BENZODIAZEPINES NEG (NEG); CANNABINOIDS NEG (NEG); COCAINE NEG (NEG); METHADONE NEG (NEG); OPIATES NEG (NEG); PHENCYCLIDINE NEG (NEG)
[2018-04-28 02:27] LABS: BILIRUBIN,URINE NEG (NEG); CLARITY,URINE CLEAR; COLOR,URINE YELLOW; GLUCOSE,URINE NEG (NEG)
[2018-04-28 02:28] LABS: BACTERIA,URINE 0 /HPF (0-FEW); NITRITE,URINE NEG (NEG); RBC,URINE 0 /HPF (0-2); SQUAMOUS EPITHELIAL CELL,UR FEW /LPF; UROBILINOGEN,URINE 0.2 mg/dL (0.2 mg/dL); WBC,URINE OCC /HPF (0-4)
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
[2018-04-28] MEDS ORDERED: CYCL-331 PO (02:42)
[2018-04-28] MEDS ORDERED: HYDR-79 PO (02:42)
[2018-04-28] MEDS: MORPHINE SULFATE 10 MG/ML SYRINGE. SQ ONE (02:45)
[2018-04-28 02:50] VITALS: BP 121/64
[2018-04-28] MEDS: ORPHENADRINE CITRATE 60 MG/2 ML VIAL. IM ONE (02:58)
[2018-04-28] MEDS ORDERED: KETOROLAC 60 MG/2 ML VIAL. IM ONE (03:00)
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
== END 2018-04-28 03:05 | disposition home or self-care (01) ==
LOC: ER 00:50
DX: S13.4XXA Sprain of ligaments of cervical spine, initial encounter (principal); S33.5XXA Sprain of ligaments of lumbar spine, initial encounter; S23.3XXA Sprain of ligaments of thoracic spine, initial encounter; M19.022 Primary osteoarthritis, left elbow; F31.9 Bipolar disorder, unspecified; K21.9 Gastro-esophageal reflux disease without esophagitis; G43.909 Migraine, unspecified, not intractable, without status migrainosus; V59.9XXA Occupant (driver) (passenger) of pick-up truck or van injured in unspecified traffic accident, initial encounter; Y93.89 Activity, other specified; Y92.488 Other paved roadways as the place of occurrence of the external cause; Y99.8 Other external cause status
CPT/HCPCS: 36415; 71046; 72125; 72128; 72131; 80307; 81001; 96372; 99285; J2270; J2360; G0479

== ENCOUNTER 2018-05-14 14:25 | Emergency (ER) | payer OTHER ==
[~2018-05-14 14:25] MED LIST changes: +CYCL-331 PO; +HYDR-79 PO
[2018-05-14 14:37] VITALS: BP 147/73
--- NOTE | 2018-05-14 15:11 | RAD ---
Left RIBS with chest, 3 views, 05/14/2018: HISTORY: Pain, fall No rib fracture is identified. There is no evidence of underlying pneumothorax or hemothorax. The heart size is normal. IMPRESSION: No acute left rib abnormality is detected. Electronically signed by: Major Marrero MD (05/14/2018 3:08 PM) [facility]
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
== END 2018-05-14 15:40 | disposition home or self-care (01) ==
LOC: ER 14:25
DX: R07.89 Other chest pain (principal); R51 Headache; M54.2 Cervicalgia; G89.11 Acute pain due to trauma; K21.9 Gastro-esophageal reflux disease without esophagitis; W10.8XXA Fall (on) (from) other stairs and steps, initial encounter; Y93.89 Activity, other specified; Y92.89 Other specified places as the place of occurrence of the external cause; Y99.8 Other external cause status
CPT/HCPCS: 71101; 99284

== ENCOUNTER 2018-07-29 08:57 | Emergency (ER) | payer OTHER ==
[~2018-07-29] VITALS: Ht 180.3 cm; Wt 125.0 kg
[~2018-07-29 08:57] MED LIST changes: +HYDR-1179 PO; +HYDR-3165 PO; -HYDR-79 PO; -HYDR-971 PO
[2018-07-29] MEDS ORDERED: NAPROXEN 500 MG TABLET ONE (09:30)
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
[2018-07-29] MEDS ORDERED: NAPROXEN 500 MG TABLET PO ONE (09:45)
[2018-07-29] MEDS ORDERED: NAPR-683 PO (10:10)
[2018-07-29 10:15] VITALS: BP 139/78
--- NOTE | 2018-07-29 10:24 | RAD ---
Chest, PA and Lateral: Technique: PA and lateral views of the chest were obtained. History: Chest pain. Comparison: 04/28/2018. Findings: The heart and pulmonary vasculature appear within normal limits. The lungs are clear. The pleural margins are clear. Impression: No acute chest process is seen. Electronically signed by: Aba Sosa MD (07/29/2018 10:20 AM) [id number]
--- NOTE | 2018-07-30 05:52 | EKG ---
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
--- NOTE | 2018-07-30 17:31 | EKG ---
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
== END 2018-07-29 10:15 | disposition home or self-care (01) ==
LOC: ER 08:57
DX: R07.89 Other chest pain (principal); G89.29 Other chronic pain; K21.9 Gastro-esophageal reflux disease without esophagitis; W22.8XXA Striking against or struck by other objects, initial encounter; Y93.89 Activity, other specified; Y92.89 Other specified places as the place of occurrence of the external cause; Y99.8 Other external cause status
CPT/HCPCS: 71046; 93005; 99283

== ENCOUNTER 2018-09-03 12:09 | Emergency (ER) | payer OTHER ==
[~2018-09-03] VITALS: Ht 180.3 cm; Wt 122.5 kg
[~2018-09-03 12:09] MED LIST changes: +NAPR-683 PO
--- NOTE | 2018-09-03 12:57 | RAD ---
EXAM: Head CT without contrast. HISTORY: Fall. Headache. TECHNIQUE: Computed tomographic images of the head were obtained without contrast. *One or more of the following individualized dose reduction techniques were utilized for this examination: 1. Automated exposure control. 2. Adjustment of the mA and/or kV according to patient size. 3. Use of iterative reconstruction technique. COMPARISON: 01/30/2015. FINDINGS: There is no acute or subacute extra-axial or intraparenchymal hemorrhage. There is no mass effect or midline shift. There is no hydrocephalus. The mccoy-white matter differentiation pattern is intact. There is mild ethmoid sinus mucosal thickening. The visualized portions of the orbits and mastoid air cells are unremarkable. No calvarial lesion is seen. IMPRESSION: No acute intracranial findings. Electronically signed by: Ivonne Shukla MD (09/03/2018 12:54 PM) [id number]
--- NOTE | 2018-09-03 13:04 | PHYS DOC ---
Past History Past Medical History: Bipolar, GERD Past Surgical History: Other Smoking: Non-smoker Alcohol Use: None Drug Use: None Adult General Chief Complaint Chief Complaint: HEAD INJURY/TRAUMA HPI HPI Patient is a 22 year old male who presents with complaining of head injury. Patient has had history of bipolar disorder with frequent emergency room visits and state he had an accidental fall from 4 steps today because of slipping on ice and landed on back of his head with injury to his head without loss of consciousness. Patient complaining of headache, nausea, blurred vision since yesterday that gradually getting worse. Patient denies focal neuro deficit, fever and chills, vomiting and diarrhea. Patient rated his pain 7 and denies taking any pain medication. Review of Systems Review of Systems Constitutional: Denies fever or chills [] Eyes: Denies change in visual acuity, redness, or eye pain, reports blurred vision [] HENT: Denies nasal congestion or sore throat [] Respiratory: Denies cough or shortness of breath [] Cardiovascular: No additional information not addressed in HPI [] GI: Denies abdominal pain, vomiting, bloody stools or diarrhea , reports nausea[ ] : Denies dysuria or hematuria [] Musculoskeletal: Denies back pain or joint pain [] Integument: Denies rash or skin lesions [] Neurologic: Reports headache, denies focal weakness or sensory changes [] Endocrine: Denies polyuria or polydipsia [] All other systems were reviewed and found to be within normal limits, except as documented in this note. Current Medications Current Medications Current Medications Medications (Trade) Dose Ordered Sig/[facility] Start Time Stop Time Status Last Admin Dose Admin Ketorolac Tromethamine (Toradol Im) 60 mg 1X ONCE 09/03/18 13:15 09/03/18 13:16 Allergies Allergies Allergies Coded Allergies Type Severity Reaction Last Updated Verified No Known Drug Allergies 09/03/18 No Physical Exam Physical Exam Constitutional: Well nourished, no acute distress, non-toxic appearance. [] HENT: Normocephalic, atraumatic, bilateral external ears normal, oropharynx moist, no oral exudates, nose normal. [] Eyes: PERRLA, EOMI, conjunctiva normal, no discharge. [] Neck: Normal range of motion, no tenderness, supple, no stridor. [] Cardiovascular:Heart rate regular rhythm, no murmur [] Lungs & Thorax: Bilateral breath sounds clear to auscultation [] Abdomen: Bowel sounds normal, soft, no tenderness, no masses, no pulsatile masses. [] Skin: Warm, dry, no erythema, no rash. [] Back: No tenderness, no CVA tenderness. [] Extremities: No tenderness, no cyanosis, no clubbing, ROM intact, no edema. [] Neurologic: Alert and oriented X 3, normal motor function, normal sensory function, no focal deficits noted. [] Psychologic: Affect normal, judgement normal, mood normal. [] Current Patient Data Vital Signs Vital Signs Date Time Temp Pulse Resp B/P (MAP) Pulse Ox O2 Delivery O2 Flow Rate FiO2 09/03/18 12:18 97.7 87 18 100 Room Air EKG EKG [] Radiology/Procedures Radiology/Procedures [address] [address] IMAGING REPORT Signed PATIENT: LORA MARTE ACCOUNT: [id number] : 1995 LOCATION: ER AGE: 22 SEX: M EXAM STATUS: REG ER ORD. PHYSICIAN: STEPHANIE DIOP MD REASON: head injury PROCEDURE: CT HEAD WO CONTRAST EXAM: Head CT without contrast. HISTORY: Fall. Headache. TECHNIQUE: Computed tomographic images of the head were obtained without contrast. *One or more of the following individualized dose reduction techniques were utilized for this examination: 1. Automated exposure control. 2. Adjustment of the mA and/or kV according to patient size. 3. Use of iterative reconstruction technique. COMPARISON: 01/30/2015. FINDINGS: There is no acute or subacute extra-axial or intraparenchymal hemorrhage. There is no mass effect or midline shift. There is no hydrocephalus. The mccoy-white matter differentiation pattern is intact. There is mild ethmoid sinus mucosal thickening. The visualized portions of the orbits and mastoid air cells are unremarkable. No calvarial lesion is seen. IMPRESSION: No acute intracranial findings. Electronically signed by: Ivonne Sánchez MD (09/03/2018 12:54 PM) [id number] DICTATED AND SIGNED BY: IVONNE SÁNCHEZ MD DATE: 09/03/18 1253 CC: FÉLIX KNIGHT DO; STEPHANIE DIOP MD ~ Course & Med Decision Making Course & Med Decision Making Pertinent Imaging studies reviewed. (See chart for details) discharge: I've spoken with the patient and/or caregivers. I've explained the patient's condition, diagnosis and treatment plan based on information available to me at this time. I've answered the patient's and/or caregivers questions and addressed any concerns. The patient and/or caregivers have a good understanding the patient's diagnosis, condition and treatment plan as can be expected at this point. Vital signs have been stabilized. The patient's condition is stable for discharge from the emergency department. The patient will pursue further outpatient evaluation with her primary care provider or other designated consulting physician as outlined in the discharge instructions. Patient and/or caregivers are agreeable to this plan of care and follow-up instructions have been explained in detail. The patient and/or caregivers have received these instructions in written format and expressed understanding of these discharge instructions. The patient and her caregivers are aware that if any significant change in condition or worsening of symptoms should prompt him to immediately return to this of the closest emergency department. If an emergent department is not readily available I would encourage him to call 911. Dragon Disclaimer Dragon Disclaimer This electronic medical record was generated, in whole or in part, using a voice recognition dictation system. Departure Departure: Impression: Primary Impression: Head injury Additional Impression: Fall from slipping on ice Disposition: HOME, SELF-CARE (at 1323) Condition: STABLE Referrals: FÉLIX KNIGHT DO (PCP) Patient Instructions: Concussion and Brain Injury, Head Injury, Adult Additional Instructions: Drink plenty of liquids Follow-up with your primary care physician in 3-5 days Return to ER if not getting better Scripts Naproxen (NAPROSYN) 500 Mg Tablet 500 MG PO BID for pain, #14 TAB Prov: STEPHANIE DIOP MD 09/03/18 Problem Qualifiers STEPHANIE DIOP MD Sep 03, 2018 13:04
[2018-09-03] MEDS ORDERED: KETOROLAC 60 MG/2 ML VIAL. IM ONE (13:15)
[2018-09-03] MEDS ORDERED: NAPR-683 PO (13:25)
[2018-09-03 13:37] VITALS: BP 125/75
== END 2018-09-03 13:38 | disposition home or self-care (01) ==
LOC: ER 12:09
DX: S09.8XXA Other specified injuries of head, initial encounter (principal); K21.9 Gastro-esophageal reflux disease without esophagitis; F31.9 Bipolar disorder, unspecified; W00.1XXA Fall from stairs and steps due to ice and snow, initial encounter; Y93.89 Activity, other specified; Y92.89 Other specified places as the place of occurrence of the external cause; Y99.8 Other external cause status
CPT/HCPCS: 70450; 96372; 99284; J1885